=== PATIENT | male | born 1970 | race Caucasian/White ===

== ENCOUNTER → 2020-04-27 | Outpatient (CLI) | payer OTHER | LOC: DIA.ED 11:34 | DX: E11.40 Type 2 diabetes mellitus with diabetic neuropathy, unspecified (principal); Z79.4 Long term (current) use of insulin; I10 Essential (primary) hypertension; E66.8 Other obesity | CPT/HCPCS: G0108 ==

== ENCOUNTER 2020-08-02 18:12 | Inpatient (IN) | payer OTHER ==
[~2020-08-02] VITALS: Ht 172.8 cm; Wt 143.1 kg
[2020-08-02] VITALS (86 sets, daily range): O2SAT 96–100
[2020-08-02] MEDS ORDERED: ASPIRIN 81M81 MG/TA2 PO (18:34)
[2020-08-02] MEDS ORDERED: ZOCOR 10MG10 MG PO (18:35)
[2020-08-02] MEDS ORDERED: GLUCOTROL10 MG PO (18:36)
[2020-08-02] MEDS ORDERED: ZESTRIL 10MG10 MG PO (18:39)
[2020-08-02] MEDS ORDERED: PROCARDIA XL 6060 MG PO (18:40)
[2020-08-02] MEDS ORDERED: TOPROL XL 25MG25 MG PO (18:41)
[2020-08-02] MEDS ORDERED: IMDUR 30MG30 MG/TAB PO (18:41)
[2020-08-02] MEDS ORDERED: LANTUS SOLOS100 U/ML SQ (18:42)
[2020-08-02] MEDS ORDERED: HUMALOG PEN100 U/ML SQ (18:42)
[2020-08-02 18:43] LABS: BASO % 0.4 % (0.0-2.0); EOS # 0.3 (0.0-0.7); GRAN # 6.6 (1.4-6.5); GRAN % 67.9 % (42.2-75.2); HEMOGLOBIN 12.6 g/dl (13.5-18.0); LYMPH # 2.2 (1.2-3.4); LYMPH % 22.4 % (20.0-51.0); MEAN CELL VOLUME 85 fl (80.0-100.0); MEAN CORPUSCULAR HEMOGLOBIN 28 pg (27.0-31.0); MEAN CORPUSCULAR HGB CONC 33 g/dl (33.0-37.0); MEAN PLATELET VOLUME 10.7 fl (7.4-10.4); MONO # 0.6 (0.1-0.6); PLATELET COUNT 238 K/mm3 (130-400); PROTHROMBIN TIME 10.5 SECONDS (9.7-12.8); RED BLOOD COUNT 4.49 M/mm3 (4.20-5.60); REDCELL DISTRIBUTION WIDTH-CV 13.2 % (11.5-14.5)
[2020-08-02 18:50] LABS: ALANINE AMINOTRANSFERASE 19 U/L (4-49); ALBUMIN 3.7 gm/dL (3.5-5.0); ALKALINE PHOSPHATASE 60 U/L (50-136); ANION GAP 5 mmol/L (7-16); AST,SGOT 28 U/L (15-37); BILIRUBIN,TOTAL 0.4 mg/dL (0.0-1.0); BLOOD UREA NITROGEN 18 mg/dL (9-20); CALCIUM 8.5 mg/dL (8.4-10.2); CARBON DIOXIDE 23 mmol/L (22-30); CHLORIDE 110 mmol/L (98-107); CREATININE, serum 1.58 (0.66-1.25); GLUCOSE 132 mg/dL (74-106); POTASSIUM 4.2 mmol/L (3.4-5.0); SODIUM 137 mmol/L (137-145)
[2020-08-02 19:02] LABS: TROPONIN-I 0.012 ng/mL (0.000-0.035)
[2020-08-02 19:06] LABS: LIPASE 636 U/L (23-300)
[2020-08-02 19:07] LABS: C-REACTIVE PROTEIN < 0.5 mg/dL (0.0-0.9)
[2020-08-02 20:20] LABS: PARTIAL THROMBOPLASTIN TIME 29.8 SECONDS (26.0-37.0)
[2020-08-02 20:21] LABS: COLLECTION METHOD CLEAN CATCH
[2020-08-02 20:27] LABS: PH 6 (5-8); SQUAMOUS EPITHELIAL None Seen /hpf; URINE APPEARANCE Clear; URINE BACTERIA Occasional /hpf; URINE BILIRUBIN Negative (NEGATIVE); URINE BLOOD 1+ (NEGATIVE); URINE COLOR Yellow; URINE GLUCOSE Negative (NEGATIVE); URINE KETONE Negative (NEGATIVE); URINE LEUKOCYTE ESTERASE Negative (NEGATIVE); URINE NITRATE Negative (NEGATIVE); URINE PROTEIN(semi-quant) 3+ (NEGATIVE); URINE RBC 0-2 /hpf; URINE UROBILINOGEN Negative (NEGATIVE)
[2020-08-02] MEDS ORDERED: ZOCOR 20MG20 MG PO (21:25)
[2020-08-02] MEDS ORDERED: ADALAT CC90 MG PO (22:41)
[2020-08-02] MEDS ORDERED: LOPRESSOR 225 MG/TAB PO (22:42)
[2020-08-03] VITALS (1041 sets, daily range): BP systolic 112–166; BP diastolic 45–92; PULSE 72–92; TEMP 98.3–98.9; O2SAT 82–100
[2020-08-03 06:00] LABS: BASO % 0.3 % (0.0-2.0); EOS # 0.2 (0.0-0.7); GRAN # 7.2 (1.4-6.5); GRAN % 73.9 % (42.2-75.2); LYMPH # 1.6 (1.2-3.4); LYMPH % 16.1 % (20.0-51.0); MEAN CELL VOLUME 84 fl (80.0-100.0); MEAN CORPUSCULAR HEMOGLOBIN 28 pg (27.0-31.0); MEAN CORPUSCULAR HGB CONC 33 g/dl (33.0-37.0); MEAN PLATELET VOLUME 10.5 fl (7.4-10.4); MONO # 0.7 (0.1-0.6); MONO % 7.4 % (1.7-9.3); PLATELET COUNT 203 K/mm3 (130-400); RED BLOOD COUNT 4.31 M/mm3 (4.20-5.60)
[2020-08-03 06:02] LABS: HEMATOCRIT 36.1 % (42.0-52.0)
[2020-08-03 06:10] LABS: PARTIAL THROMBOPLASTIN TIME 46.7 SECONDS (26.0-37.0)
[2020-08-03 06:13] LABS: CHOLESTEROL RISK RATIO 2.4
[2020-08-03 06:28] LABS: TROPONIN-I 0.013 ng/mL (0.000-0.035)
[2020-08-04] VITALS (688 sets, daily range): BP systolic 104–182; BP diastolic 67–104; PULSE 62–80; TEMP 98–98.2; O2SAT 74–100
[2020-08-04 05:59] LABS: HEMOGLOBIN 11.5 g/dl (13.5-18.0); MEAN CELL VOLUME 85 fl (80.0-100.0); MEAN CORPUSCULAR HEMOGLOBIN 28 pg (27.0-31.0); MEAN CORPUSCULAR HGB CONC 33 g/dl (33.0-37.0); MEAN PLATELET VOLUME 10.6 fl (7.4-10.4); PLATELET COUNT 187 K/mm3 (130-400); RED BLOOD COUNT 4.08 M/mm3 (4.20-5.60); REDCELL DISTRIBUTION WIDTH-CV 13.1 % (11.5-14.5)
[2020-08-04 06:00] LABS: HEMATOCRIT 34.7 % (42.0-52.0)
[2020-08-04 06:07] LABS: INR 1.1 (0.8-3.0); PROTHROMBIN TIME 11.9 SECONDS (9.7-12.8)
[2020-08-04 06:10] LABS: PARTIAL THROMBOPLASTIN TIME 28.8 SECONDS (26.0-37.0)
[2020-08-04 06:17] LABS: CALCIUM 8.2 mg/dL (8.4-10.2); CREATININE, serum 1.61 (0.66-1.25); POTASSIUM 4.3 mmol/L (3.4-5.0)
[2020-08-05] VITALS (788 sets, daily range): BP systolic 113–171; BP diastolic 38–84; PULSE 60–75; TEMP 97.8–98.5; O2SAT 81–100
[2020-08-05 05:39] LABS: BASO % 0.4 % (0.0-2.0); EOS # 0.2 (0.0-0.7); GRAN # 4.9 (1.4-6.5); GRAN % 63.3 % (42.2-75.2); HEMATOCRIT 35.2 % (42.0-52.0); HEMOGLOBIN 11.8 g/dl (13.5-18.0); LYMPH # 1.9 (1.2-3.4); LYMPH % 24.3 % (20.0-51.0); MEAN CELL VOLUME 85 fl (80.0-100.0); MEAN CORPUSCULAR HEMOGLOBIN 28 pg (27.0-31.0); MEAN CORPUSCULAR HGB CONC 34 g/dl (33.0-37.0); MEAN PLATELET VOLUME 11.1 fl (7.4-10.4); MONO # 0.7 (0.1-0.6); MONO % 8.6 % (1.7-9.3); PLATELET COUNT 201 K/mm3 (130-400); RED BLOOD COUNT 4.15 M/mm3 (4.20-5.60); REDCELL DISTRIBUTION WIDTH-CV 12.8 % (11.5-14.5)
[2020-08-05 05:46] LABS: PROTHROMBIN TIME 11.5 SECONDS (9.7-12.8)
[2020-08-05 05:49] LABS: CALCIUM 8.2 mg/dL (8.4-10.2); CREATININE, serum 1.6 (0.66-1.25); PARTIAL THROMBOPLASTIN TIME 30.2 SECONDS (26.0-37.0); POTASSIUM 4.2 mmol/L (3.4-5.0)
[2020-08-06] VITALS (321 sets, daily range): BP systolic 140–150; BP diastolic 58–87; PULSE 62–72; TEMP 98.2–98.6; O2SAT 80–100
[2020-08-06 04:45] LABS: BASO % 0.3 % (0.0-2.0); EOS # 0.2 (0.0-0.7); EOS % 3.2 % (0-4.0); GRAN # 4.7 (1.4-6.5); GRAN % 62.4 % (42.2-75.2); HEMOGLOBIN 12.4 g/dl (13.5-18.0); LYMPH # 1.9 (1.2-3.4); LYMPH % 25.1 % (20.0-51.0); MEAN CELL VOLUME 81 fl (80.0-100.0); MEAN CORPUSCULAR HEMOGLOBIN 28 pg (27.0-31.0); MEAN CORPUSCULAR HGB CONC 34 g/dl (33.0-37.0); MEAN PLATELET VOLUME 10.7 fl (7.4-10.4); MONO # 0.6 (0.1-0.6); MONO % 8.5 % (1.7-9.3); PLATELET COUNT 196 K/mm3 (130-400); RED BLOOD COUNT 4.42 M/mm3 (4.20-5.60); REDCELL DISTRIBUTION WIDTH-CV 12.6 % (11.5-14.5)
[2020-08-06 04:56] LABS: CALCIUM 8.7 mg/dL (8.4-10.2); CREATININE, serum 1.63 (0.66-1.25); MAGNESIUM 1.9 mg/dL (1.6-2.3); POTASSIUM 4.1 mmol/L (3.4-5.0)
[2020-08-06] MEDS ORDERED: LIPITOR 80MG80 MG PO (09:28)
[2020-08-06] MEDS ORDERED: NITROSTAT0.4 MG/TAB SL (09:28)
[2020-08-06] MEDS ORDERED: EFFIENT10 MG PO (09:28)
[2020-08-06] MEDS ORDERED: PROCARDIA XL 6060 MG PO (09:31)
== END 2020-08-06 10:11 | disposition home or self-care (01) | DRG 247 ==
LOC: COL.ER 18:12 → ICU 20:01
PROVIDERS: Emergency Medicine; Family Medicine; Nurse Practitioner Family; ADMIT Student in an Organized Health Care Education/Training Program
PROC: 4A023N7 Measurement of Cardiac Sampling and Pressure, Left Heart, Percutaneous Approach (ICD-10-PCS; 2020-08-04)
PROC: B2111ZZ Fluoroscopy of Multiple Coronary Arteries using Low Osmolar Contrast (ICD-10-PCS; 2020-08-04)
PROC: 027135Z Dilation of Coronary Artery, Two Arteries with Two Drug-eluting Intraluminal Devices, Percutaneous Approach (ICD-10-PCS; principal; 2020-08-05)
DX: I25.110 Atherosclerotic heart disease of native coronary artery with unstable angina pectoris (principal); I50.32 Chronic diastolic (congestive) heart failure; I13.0 Hypertensive heart and chronic kidney disease with heart failure and stage 1 through stage 4 chronic kidney disease, or unspecified chronic kidney disease; Z68.42 Body mass index [BMI] 45.0-49.9, adult; N18.30 Chronic kidney disease, stage 3 unspecified; E11.22 Type 2 diabetes mellitus with diabetic chronic kidney disease; E78.5 Hyperlipidemia, unspecified; E66.01 Morbid (severe) obesity due to excess calories; E11.621 Type 2 diabetes mellitus with foot ulcer; L97.529 Non-pressure chronic ulcer of other part of left foot with unspecified severity; Z20.822 Contact with and (suspected) exposure to COVID-19; Z89.421 Acquired absence of other right toe(s); Z79.82 Long term (current) use of aspirin; Z79.4 Long term (current) use of insulin; Z88.0 Allergy status to penicillin; Z88.1 Allergy status to other antibiotic agents; Z88.2 Allergy status to sulfonamides; Z82.49 Family history of ischemic heart disease and other diseases of the circulatory system
CPT/HCPCS: 99223-AI; 99232-AI; 99233-AI; 99239; A9500; C1760; C1769; C1874; C1887; C1894; C9600; C9601; J0360; J0583; J1644; J1815; J2250; J2785; J3010; J3370; J7030; J7050; Q9967

== ENCOUNTER 2020-09-02 17:06 | Outpatient (RCR) | payer OTHER ==
[~2020-09-02 17:06] MED LIST: ADALAT CC90 MG PO; ASPIRIN 81M81 MG/TA2 PO; EFFIENT10 MG PO; GLUCOTROL10 MG PO; HUMALOG PEN100 U/ML SQ; IMDUR 30MG30 MG/TAB PO; LANTUS SOLOS100 U/ML SQ; LIPITOR 80MG80 MG PO; LOPRESSOR 225 MG/TAB PO; NITROSTAT0.4 MG/TAB SL; PROCARDIA XL 6060 MG PO; TOPROL XL 25MG25 MG PO; ZESTRIL 10MG10 MG PO; ZOCOR 10MG10 MG PO; ZOCOR 20MG20 MG PO
== END 2020-09-28 15:49 | disposition home or self-care (01) ==
LOC: COL.CR 17:06
DX: Z48.812 Encounter for surgical aftercare following surgery on the circulatory system (principal); Z95.5 Presence of coronary angioplasty implant and graft

== ENCOUNTER 2020-10-22 14:39 | Emergency (ER) | payer OTHER ==
[~2020-10-22] VITALS: Ht 175.3 cm; Wt 138.2 kg
[2020-10-22 14:55] VITALS: BP 151/79; TEMP 98.3
[2020-10-22] MEDS ORDERED: CLEOCIN HCL300 MG PO (15:25)
[2020-10-22 15:28] VITALS: PULSE 68
== END 2020-10-22 15:33 | disposition home or self-care (01) ==
LOC: COL.ER 14:39
DX: L03.115 Cellulitis of right lower limb (principal); E11.22 Type 2 diabetes mellitus with diabetic chronic kidney disease; N18.9 Chronic kidney disease, unspecified; I50.9 Heart failure, unspecified; Z79.82 Long term (current) use of aspirin; Z79.4 Long term (current) use of insulin

== ENCOUNTER → 2020-12-29 | Outpatient (CLI) | payer OTHER ==
[~2020-12-29] MED LIST changes: +CLEOCIN HCL300 MG PO; +GLUCOTROL XL10 MG PO; +OZEMPIC0.25 MG/0. SQ
== END ==
LOC: COL.RAD 12-25 09:45
DX: N18.31 Chronic kidney disease, stage 3a (principal)

== ENCOUNTER 2021-02-05 11:47 | Observation (INO) | payer OTHER ==
[~2021-02-05] VITALS: Ht 177.8 cm; Wt 138.6 kg
[~2021-02-05 11:47] MED LIST changes: -GLUCOTROL XL10 MG PO; -OZEMPIC0.25 MG/0. SQ
[2021-02-05 13:20] LABS: BASO # 0.1 K/mm3 (0.0-0.2); BASO % 0.7 % (0.0-2.0); EOS # 0.4 K/mm3 (0.0-0.7); EOS % 4.3 % (0-4.0); GRAN % 56.8 % (42.2-75.2); HEMOGLOBIN 12.7 g/dl (13.5-18.0); LYMPH # 2.6 K/mm3 (1.2-3.4); LYMPH % 29.8 % (20.0-51.0); MEAN CELL VOLUME 82 fl (80.0-100.0); MEAN CORPUSCULAR HEMOGLOBIN 29 pg (27.0-31.0); MEAN CORPUSCULAR HGB CONC 35 g/dl (33.0-37.0); MEAN PLATELET VOLUME 10.4 fl (7.4-10.4); MONO # 0.7 K/mm3 (0.1-0.6); MONO % 7.9 % (1.7-9.3); PLATELET COUNT 224 K/mm3 (130-400); RED BLOOD COUNT 4.44 M/mm3 (4.20-5.60); REDCELL DISTRIBUTION WIDTH-CV 12.6 % (11.5-14.5)
[2021-02-05 13:21] LABS: HEMATOCRIT 36.5 % (42.0-52.0)
[2021-02-05 13:39] LABS: ALBUMIN 3.8 gm/dL (3.5-5.0); BILIRUBIN,TOTAL 0.9 mg/dL (0.2-1.2); CREATININE, serum 2.37 mg/dL (0.72-1.25); TOTAL PROTEIN 7.3 gm/dL (6.2-8.1)
[2021-02-05 13:46] LABS: TROPONIN-I 0.079 ng/mL (0.00-0.033)
[2021-02-05] MEDS ORDERED: GLUCOTROL XL10 MG PO (14:22)
[2021-02-05] MEDS ORDERED: OZEMPIC0.25 MG/0. SQ (19:53)
[2021-02-05 20:08] VITALS: BP 155/80; PULSE 78; TEMP 98.1
[2021-02-05 23:21] VITALS: BP 133/80; PULSE 80; TEMP 97.9
[2021-02-06 03:15] VITALS: BP 93/72; PULSE 77; TEMP 98
[2021-02-06 05:08] VITALS: BP 133/69
--- NOTE | 2021-02-06 05:20 | NUR ---
PT ADMITTED TO ROOM 349 @1930 PER WC FROM ED ACCOMPANIED BY RN AND . NO FURTHER C/O CHEST PAIN SINCE ADMISSION, IVF INFUSING PER PIV @50CC/HR. UP INDEPENDENTLY IN ROOM. MINDY, ON RA.
[2021-02-06 07:37] VITALS: BP 121/75; PULSE 77; TEMP 98.6
--- NOTE | 2021-02-06 10:30 | NUR ---
PT ALERT AND ORIENTED. PT LUNGS CLEAR TO AUSCULTATION. PT HAS AMPUTATED RIGHT GREAT TOE. PT ABLE TO AMBULATE INDEPENDENTLY. BILATERAL LOWER EDEMA NOTED, NON-PITTING. PT ABLE TO CONVERSE FREELY, CALL LIGHT WIHTIN REACH, NO OTHER NEEDS AT THIS TIME.
[2021-02-06 11:51] VITALS: BP 145/81; PULSE 73; TEMP 97.8
--- NOTE | 2021-02-06 12:47 | NUR ---
NOTIFIED DR. PETE OF NEEDING INSULIN SLIDING SCALE TO MANAGE BLOOD SUGARS.
[2021-02-06 14:09] LABS: BASO % 0.5 % (0.0-2.0); EOS # 0.3 K/mm3 (0.0-0.7); EOS % 3.9 % (0-4.0); GRAN # 4.7 K/mm3 (1.4-6.5); GRAN % 56.9 % (42.2-75.2); HEMATOCRIT 36.8 % (42.0-52.0); HEMOGLOBIN 12.5 g/dl (13.5-18.0); LYMPH # 2.7 K/mm3 (1.2-3.4); LYMPH % 32.9 % (20.0-51.0); MEAN CELL VOLUME 84 fl (80.0-100.0); MEAN CORPUSCULAR HEMOGLOBIN 28 pg (27.0-31.0); MEAN CORPUSCULAR HGB CONC 34 g/dl (33.0-37.0); MEAN PLATELET VOLUME 10.9 fl (7.4-10.4); MONO # 0.5 K/mm3 (0.1-0.6); MONO % 5.6 % (1.7-9.3); PLATELET COUNT 225 K/mm3 (130-400); REDCELL DISTRIBUTION WIDTH-CV 12.8 % (11.5-14.5)
[2021-02-06 14:27] LABS: CALCIUM 8.9 mg/dL (8.4-10.2); CREATININE, serum 2.26 mg/dL (0.72-1.25); POTASSIUM 5.3 mmol/L (3.5-4.5)
--- NOTE | 2021-02-06 14:36 | NUR ---
PT DR. PETE OF CRITICAL GLUCOSE VALUE AND RESULTING LABS.
--- NOTE | 2021-02-06 15:00 | NUR ---
Plan is to return home with Pamela . Patient reports that they reside locally. Patient indicated that his mother Darshana is an alternate contact . Patient reports that he sees PCP Timothy Teague at [facility], Dr. Jack, Dr. Hussein, and another doctor for a foot. Patient shares that [facility] on [address]. Patient shares that he does not use any DME supports. Educated that his will support patient to get home. NF.
--- NOTE | 2021-02-06 15:46 | NUR ---
PT LEFT AMA. DR. PETE AWARE, PROGRAMMER DEVELOPER NOTIFIED. PAPERWORK SIGNED AND IN CHART. PT REMOVED IV BY SELF. PT AMBULATED TO ER ENTRANCE.
== END 2021-02-06 15:50 | disposition left against medical advice (07) ==
LOC: COL.ER 11:47 → SURG 15:55
PROVIDERS: Nurse Practitioner; Student in an Organized Health Care Education/Training Program; ADMIT Internal Medicine
DX: R07.89 Other chest pain (principal); N17.9 Acute kidney failure, unspecified; E11.22 Type 2 diabetes mellitus with diabetic chronic kidney disease; I12.9 Hypertensive chronic kidney disease with stage 1 through stage 4 chronic kidney disease, or unspecified chronic kidney disease; N18.30 Chronic kidney disease, stage 3 unspecified; E66.9 Obesity, unspecified; E78.5 Hyperlipidemia, unspecified; I25.2 Old myocardial infarction; I25.10 Atherosclerotic heart disease of native coronary artery without angina pectoris; Z95.818 Presence of other cardiac implants and grafts; Z79.899 Other long term (current) drug therapy; Z79.4 Long term (current) use of insulin; Z79.84 Long term (current) use of oral hypoglycemic drugs; Z89.421 Acquired absence of other right toe(s); Z79.82 Long term (current) use of aspirin
CPT/HCPCS: G0378; J1815; J7030